=== PATIENT | male | born 1970 | race Caucasian/White ===

== ENCOUNTER 2020-12-16 09:58 | Observation (INO) ==
[2020-12-16] MEDS ORDERED: NS 0.9% 1000 ml BAG 1,000 ML IV ONE ×2 (10:17→14:15)
[2020-12-16] MEDS ORDERED: Ondansetron 4 mg VIAL 2 MG/ML 2 ml VIAL IV ONE (10:53)
[2020-12-16] MEDS ORDERED: Morphine 4 MG/ML VIAL (1 ml) IV ONE ×2 (10:53→14:47)
[2020-12-16 11:32] LABS: ABS Eosinophils 0.1 10^3/ul (0-0.6); ABS Lymphocytes 0.7 10^3/ul (1.0-4.8); ABS Monocytes 0.5 10^3/ul (0-0.8); ABS Neutrophils 6.3 10^3/ul (1.5-7.7); Eosinophil % 1.6 %; Hematocrit 44 % (42-52); Hemoglobin 15.6 g/dL (14.0-18.0); Lymphocyte % 9.7 %; Mean Corpuscular HGB Conc 35 g/dL (31-36); Mean Corpuscular Hemoglobin 31 pg (27-31); Mean Corpuscular Volume 87 fL (80-94); Nucleated Red Blood Cells % 0.1; Platelet Count 188 10^3/uL (150-450); Red Blood Count 5.05 10^6 /uL (4.18-5.48); Red Cell Distribution Width 13 % (10-15); White Blood Count 7.6 10^3/uL (3.5-10.8)
[2020-12-16 11:43] LABS: Albumin 4.2 g/dL (3.2-5.2); Albumin/Globulin Ratio 1.6 (1-3); BUN/Creatinine Ratio 16.5 (8-20); C Reactive Protein 4.11 mg/L (<8.01); Calcium 9.3 mg/dL (8.6-10.3); EGFR African American 115.4 (>60); EGFR Non-African American 95.4 (>60); Globulin 2.6 g/dL (2-4); Potassium 3.5 mmol/L (3.5-5.0); Total Bilirubin 1.6 mg/dL (0.2-1.0); Total Protein 6.8 g/dL (6.4-8.9)
[2020-12-16 11:50] LABS: Urine Appearance Cloudy; Urine Bilirubin Negative (Negative); Urine Blood Negative (Negative); Urine Color Yellow; Urine Glucose Negative (Negative); Urine Ketones 2+ (Negative); Urine Nitrite Negative (Negative); Urine Protein 1+(30 mg/dL) (Negative); Urine Specific Gravity 1.016 (1.010-1.030); Urine Urobilinogen Negative (Negative)
[2020-12-16 11:52] LABS: Activated Partial Thrombo Time 32.6 seconds (26.0-38.0); INR 1.07 (0.82-1.09)
[2020-12-16] MEDS ORDERED: diPHENhydraMINE IV 50 MG/ML 1 ml VIAL (BENADRYL) IV ONE (12:42)
[2020-12-16 12:51] LABS: Urine Bacteria Absent (Absent); Urine Red Blood Cell Trace(0-2/hpf) (Absent); Urine White Blood Cell Trace(0-5/hpf) (Absent)
[2020-12-16] MEDS ORDERED: Iohexol 300 (CONTRAST) 10 ML SDV IV ONE (12:51)
[2020-12-16] MEDS ORDERED: Ondansetron 4 mg VIAL 2 MG/ML 2 ml VIAL IV PRN (16:11)
[2020-12-16] MEDS: Lactated Ringers 1000 ml BAG 1,000 ML IV SCH (18:43)
[2020-12-16] MEDS: Morphine 2 MG/ML SYRINGE IV PRN (20:24)
[2020-12-17] MEDS: Morphine 2 MG/ML SYRINGE IV PRN (00:25)
[2020-12-17] MEDS: Lactated Ringers 1000 ml BAG 1,000 ML IV SCH ×3 (03:22→20:54)
[2020-12-17 06:24] LABS: ABS Eosinophils 0.2 10^3/ul (0-0.6); ABS Lymphocytes 0.7 10^3/ul (1.0-4.8); ABS Monocytes 0.7 10^3/ul (0-0.8); ABS Neutrophils 5.5 10^3/ul (1.5-7.7); Eosinophil % 3.1 %; Hematocrit 38 % (42-52); Hemoglobin 13.3 g/dL (14.0-18.0); Lymphocyte % 9.9 %; Mean Corpuscular HGB Conc 35 g/dL (31-36); Mean Corpuscular Hemoglobin 31 pg (27-31); Mean Corpuscular Volume 89 fL (80-94); Mean Platelet Volume 7.8 fL (7.4-10.4); Platelet Count 136 10^3/uL (150-450); Red Blood Count 4.25 10^6 /uL (4.18-5.48); Red Cell Distribution Width 13 % (10-15); White Blood Count 7.1 10^3/uL (3.5-10.8)
[2020-12-17 06:29] LABS: INR 1.11 (0.82-1.09)
[2020-12-17 06:45] LABS: BUN/Creatinine Ratio 18.3 (8-20); Calcium 8.2 mg/dL (8.6-10.3); EGFR African American 120.3 (>60); EGFR Non-African American 99.5 (>60); Potassium 3.7 mmol/L (3.5-5.0)
[2020-12-17] MEDS ORDERED: Saline NASAL SPRAY 0.65% BTL BOTH NARES PRN ×2 (08:04→12:00)
[2020-12-18] MEDS: Lactated Ringers 1000 ml BAG 1,000 ML IV SCH (04:32)
[2020-12-18 07:39] VITALS: BP 106/65
== END 2020-12-18 11:15 | disposition home or self-care (01) ==
LOC: SSU 09:58 → ED 09:58 → SSU 17:34
PROVIDERS: ADMIT Hospitalist; ATTEND Student in an Organized Health Care Education/Training Program